=== PATIENT | female | born 1985 | race Two or more races ===

== ENCOUNTER 2023-04-16 19:29 | Emergency (ER) | payer MEDICAID, OTHER ==
[~2023-04-16] VITALS: Ht 165.1 cm; Wt 104.3 kg
[2023-04-16] VITALS (7 sets, daily range): BP systolic 128; BP diastolic 75; TEMP 98.5; O2SAT 95–100
[2023-04-16] MEDS ORDERED: methylPREDNISolone SOD SUCC 125 MG/2ML VIAL ONE (20:46)
[2023-04-16] MEDS ORDERED: ALBUTEROL FS 2.5 MG/3 ML VIAL.NEB ONE ×2 (20:49→21:44)
[2023-04-16] MEDS ORDERED: IPRATROPIUM NEB FS 0.5 MG/2.5 ML AMPUL.NEB ONE ×2 (20:49→21:44)
[2023-04-16] MEDS ORDERED: methylPREDNISolone SOD SUCC 125 MG/2ML VIAL IV ONE (21:00)
[2023-04-16] MEDS ORDERED: ALBUTEROL FS 2.5 MG/3 ML VIAL.NEB NEB ONE ×3 (21:00→21:30)
[2023-04-16] MEDS ORDERED: IPRATROPIUM NEB FS 0.5 MG/2.5 ML AMPUL.NEB NEB ONE ×3 (21:00→21:30)
[2023-04-16] MEDS ORDERED: ALBU18HF2 INH (23:18)
[2023-04-16] MEDS ORDERED: ALBU2.5V38 NEB (23:18)
[2023-04-16] MEDS ORDERED: BUDE10.2 INH (23:18)
[2023-04-16] MEDS ORDERED: PRED50TA PO (23:18)
[2023-04-16] MEDS ORDERED: MONT10TA22 PO (23:18)
== END 2023-04-16 23:43 | disposition home or self-care (01) ==
LOC: ER 19:33
DX: J45.909 Unspecified asthma, uncomplicated (principal); T78.40XA Allergy, unspecified, initial encounter; F17.200 Nicotine dependence, unspecified, uncomplicated; Z79.899 Other long term (current) drug therapy; X58.XXXA Exposure to other specified factors, initial encounter
CPT/HCPCS: 99284; 96374; 71045; 93005; 94640 ×3; J2930